=== PATIENT | female | born 1950 | race Caucasian/White ===

== ENCOUNTER → 2021-01-11 | Outpatient (CLI) | payer MEDICARE, OTHER ==
[~2021-01-11] MED LIST: AMOX1XR PO; AMPICILLIN 3 GM; ASPI325EC PO; Amoxicillin500 MG PO; Aspirin EC81 MG; B Complex #11 EACH; Benicar40 MG; Colace100 MG PO; ERGO400 PO; FURO40; Ferrous Sulfat325 M2 PO; GLIP10ER PO; Humulin N100 UNIT/1 SC; IBUP800 PO; LEVSOD75 PO; LIOT50 PO; LOSHYD100 PO; MAXIDONE PO; METF500 PO; NEBI5; OLME20 PO; PROB500 PO; SPIHYD; Synthroid200 MCG PO; TRIHYD253B PO; [UNRECOGNIZED DRUG - OTHER] PO
== END | disposition home or self-care (01) ==
LOC: LAB SHORT 15:49 → LAB 15:49
DX: D48.5 Neoplasm of uncertain behavior of skin (principal)
CPT/HCPCS: 88305

== ENCOUNTER → 2022-01-10 | Outpatient (CLI) | payer MEDICARE, OTHER | END | disposition home or self-care (01) | LOC: LAB SHORT 14:53 → LAB 14:53 | DX: D22.62 Melanocytic nevi of left upper limb, including shoulder (principal) | CPT/HCPCS: 88305 ==

== ENCOUNTER → 2023-03-22 | Outpatient (CLI) | payer MEDICARE, OTHER | LOC: LAB SHORT 11:00 → LAB 11:00 | DX: T79.2XXA Traumatic secondary and recurrent hemorrhage and seroma, initial encounter (principal) | CPT/HCPCS: 87070; 87077; 87147; 87186; 87205 ==

== ENCOUNTER 2023-03-27 08:50 | Day surgery (SDC) | payer OTHER, MEDICARE | END 2023-03-27 22:35 | disposition home or self-care (01) | LOC: WOUND 08:50 | DX: S30.1XXD Contusion of abdominal wall, subsequent encounter (principal); V89.2XXA Person injured in unspecified motor-vehicle accident, traffic, initial encounter; E11.622 Type 2 diabetes mellitus with other skin ulcer; I10 Essential (primary) hypertension | CPT/HCPCS: A9270 ==

== ENCOUNTER 2023-03-29 03:03 | Day surgery (SDC) | payer OTHER, MEDICARE | END 2023-03-29 22:40 | disposition home or self-care (01) | LOC: WOUND 03:03 | DX: S31.109A Unspecified open wound of abdominal wall, unspecified quadrant without penetration into peritoneal cavity, initial encounter (principal); V47.5XXA Car driver injured in collision with fixed or stationary object in traffic accident, initial encounter; E11.622 Type 2 diabetes mellitus with other skin ulcer; E11.628 Type 2 diabetes mellitus with other skin complications; I10 Essential (primary) hypertension; I48.20 Chronic atrial fibrillation, unspecified; Z85.528 Personal history of other malignant neoplasm of kidney; Z79.4 Long term (current) use of insulin | CPT/HCPCS: A9270; G0463 ==

== ENCOUNTER 2023-04-05 05:32 | Day surgery (SDC) | payer OTHER, MEDICARE | END 2023-04-05 23:01 | disposition home or self-care (01) | LOC: WOUND 05:32 | DX: S31.109A Unspecified open wound of abdominal wall, unspecified quadrant without penetration into peritoneal cavity, initial encounter (principal); X58.XXXA Exposure to other specified factors, initial encounter; S30.1XXD Contusion of abdominal wall, subsequent encounter; V49.9XXD Car occupant (driver) (passenger) injured in unspecified traffic accident, subsequent encounter; E11.622 Type 2 diabetes mellitus with other skin ulcer; I48.20 Chronic atrial fibrillation, unspecified; E11.628 Type 2 diabetes mellitus with other skin complications; I10 Essential (primary) hypertension; Z85.528 Personal history of other malignant neoplasm of kidney; Z79.4 Long term (current) use of insulin | CPT/HCPCS: A9270; G0463 ==

== ENCOUNTER 2023-04-14 01:28 | Day surgery (SDC) | payer OTHER, MEDICARE | END 2023-04-16 22:39 | disposition home or self-care (01) | LOC: WOUND 01:28 | DX: S31.109A Unspecified open wound of abdominal wall, unspecified quadrant without penetration into peritoneal cavity, initial encounter (principal); X58.XXXA Exposure to other specified factors, initial encounter; S30.1XXD Contusion of abdominal wall, subsequent encounter; V49.9XXD Car occupant (driver) (passenger) injured in unspecified traffic accident, subsequent encounter; E11.622 Type 2 diabetes mellitus with other skin ulcer; E11.628 Type 2 diabetes mellitus with other skin complications; Z79.4 Long term (current) use of insulin; I10 Essential (primary) hypertension; I48.20 Chronic atrial fibrillation, unspecified; Z85.528 Personal history of other malignant neoplasm of kidney | CPT/HCPCS: A9270; G0463 ==

== ENCOUNTER 2023-05-05 03:09 | Day surgery (SDC) | payer OTHER, MEDICARE | END 2023-05-05 23:00 | disposition home or self-care (01) | LOC: WOUND | DX: S30.1XXD Contusion of abdominal wall, subsequent encounter (principal); S31.109A Unspecified open wound of abdominal wall, unspecified quadrant without penetration into peritoneal cavity, initial encounter; E11.622 Type 2 diabetes mellitus with other skin ulcer; E11.628 Type 2 diabetes mellitus with other skin complications; Z79.4 Long term (current) use of insulin; I10 Essential (primary) hypertension; I48.20 Chronic atrial fibrillation, unspecified; Z85.528 Personal history of other malignant neoplasm of kidney; V49.9XXD Car occupant (driver) (passenger) injured in unspecified traffic accident, subsequent encounter | CPT/HCPCS: G0463 ==

== ENCOUNTER → 2025-03-05 | Outpatient (CLI) | payer BC, MEDICARE ==
[2025-03-05 14:11] LABS: BASOPHILS ABSOLUTE AUTO 0.06 K/mm3 (0.00-0.23); BASOPHILS PERCENT AUTO 1 % (0-2); EOSINOPHILS ABSOLUTE AUTO 0.09 K/mm3 (0.00-0.68); EOSINOPHILS PERCENT AUTO 2 % (0-6); Hematocrit 39.5 % (33.0-51.0); IMMATURE GRAN ABSOLUTE AUTO 0.01 K/mm3 (0.00-0.10); IMMATURE GRAN PERCENT AUTO 0 % (0-1); LYMPHOCYTES ABSOLUTE AUTO 0.88 K/mm3 (0.84-5.20); LYMPHOCYTES PERCENT AUTO 15 % (21-46); MONOCYTES ABSOLUTE AUTO 0.49 K/mm3 (0.16-1.47); MONOCYTES PERCENT AUTO 8 % (4-13); Mean Corpuscular HGB 28.8 pg (26.0-34.0); Mean Corpuscular HGB Conc 32.9 g/dL (31.5-36.5); Mean Corpuscular Volume 87 fL (80-100); Mean Platelet Volume 10.9 fL (9.1-12.4); NEUTROPHILS PERCENT AUTO 75 % (41-73); Platelet Count 176 K/mm3 (150-400); RDW Coefficient Variation 13.2 % (11.7-14.2); RDW Standard Deviation 41.7 fL (35.1-46.3); Red Blood Cell Count 4.52 M/mm3 (3.80-5.20); White Blood Cell Count 6.03 K/mm3 (4.00-11.30)
[2025-03-05 14:19] LABS: Bun/Creatinine Ratio 23.6 (12.0-20.0); Calcium, Blood 8.3 mg/dL (8.5-10.1); Creatinine, Blood 1.95 mg/dL (0.40-1.00); Potassium, Blood 4.5 mmol/L (3.5-5.5); Uric Acid, Blood 8.7 mg/dL (2.6-6.0)
== END ==
LOC: LAB 14:07 → LAB SHORT 14:07
PROVIDERS: Physician Assistant
DX: M79.672 Pain in left foot (principal); R34 Anuria and oliguria
CPT/HCPCS: 80048; 84550; 85025